=== PATIENT | male | born 1935 | race Hispanic/Latino ===

== ENCOUNTER 2018-01-12 06:18 | Day surgery (SDC) | payer OTHER ==
[2018-01-08 11:06] VITALS: BP 159/77
[2018-01-08 11:13] LABS: APPEARANCE,URINE Clear (CLEAR); BILIRUBIN,URINE Negative (NEGATIVE); COLOR,URINE Yellow (YELLOW); GLUCOSE, URINE (UA) Negative (NEGATIVE); KETONES,URINE Negative (NEGATIVE); LEUKOCYTE ESTERASE ,URINE Trace (NEGATIVE); NITRATE,URINE Negative (NEGATIVE); OCCULT BLOOD,URINE Negative (NEGATIVE); PH,URINE 7.5 (5.0-8.0); PROTEIN,URINE Negative (NEGATIVE)
[2018-01-08 11:19] LABS: BASOPHILS % (AUTO) 0.7 % (0.0-5.0); EOSINOPHILS % (AUTO) 2.7 % (0.0-8.0); HEMATOCRIT 39.7 % (42-54); LYMPHOCYTES % (AUTO) 22.6 % (21.0-51.0); MEAN CORPUSCULAR HEMOGLOBIN 27.3 pg (27.0-33.0); MEAN CORPUSCULAR HGB CONC 33.6 g/dL (32.0-36.0); MEAN CORPUSCULAR VOLUME 81.2 fL (79-99); MONOCYTES % (AUTO) 6.6 % (3.0-13.0); NEUTROPHILS % (AUTO) 67.4 % (40.0-77.0); PLATELET COUNT (AUTO) 216 K/uL (130-400); RED BLOOD CELL COUNT(AUTO) 4.89 MIL/uL (4.50-6.20); RED CELL DISTRIBUTION WIDTH 14.5 % (11.0-15.5); WHITE BLOOD COUNT (AUTO) 8.8 K/uL (4.8-10.8)
[2018-01-08 11:39] LABS: CREATININE 0.8 mg/dL (0.5-1.5); POTASSIUM 4.2 mmol/L (3.5-5.1)
[2018-01-08 11:41] LABS: BACTERIA,URINE Rare /HPF (None Seen); SQUAMOUS EPITHELIAL CELL,UR Rare /HPF (0-2); WBC,URINE 0-1 /HPF (0-1)
[2018-01-12] VITALS (22 sets, daily range): BP systolic 89–144; BP diastolic 48–73
[~2018-01-12] VITALS: Ht 175.3 cm; Wt 86.5 kg
[~2018-01-12 06:18] MED LIST: AMLO5TAB2 PO; ATOR10TA69 PO; CEFAZOLIN SODIUM 1 GM VIAL IVP SCH; LOSA100T29 PO; TAMS-1 PO
[2018-01-12] MEDS ORDERED: LACTATED RINGERS 1000ML 1,000 ML IV ONE ×2 (06:46→11:40)
[2018-01-12] MEDS ORDERED: FENTANYL CITRATE PF 50 MCG/1 ML 2ML VIAL ONE ×2 (07:12→09:14)
[2018-01-12] MEDS ORDERED: PROPOFOL 10 MG/ML 20ML VIAL IV ONE (07:12)
[2018-01-12] MEDS ORDERED: ROPIVACAINE 0.5% 5MG/ML 30ML IJ ONE ×2 (07:15→08:53)
[2018-01-12] MEDS ORDERED: ROCURONIUM BROMIDE 10MG/1ML 5ML VL ONE ×2 (07:16→08:53)
[2018-01-12] MEDS ORDERED: ONDANSETRON HCL MDV 20ML 2 MG/ML VIAL ONE ×2 (07:17→08:53)
[2018-01-12] MEDS ORDERED: GLYCOPYRROLATE 0.2 MG/ML 5 ML VIAL ONE (07:17)
[2018-01-12] MEDS ORDERED: LIDOCAINE PF 2% 5ML ABBOJECT ONE (08:53)
[2018-01-12] MEDS ORDERED: NEOSTIGMINE 5MG/5ML SYR IV ONE ×2 (08:53)
[2018-01-12] MEDS ORDERED: EPHEDRINE SULFATE 50 MG/ML AMPULE ONE (08:54)
== END 2018-01-12 14:00 | disposition home or self-care (01) ==
LOC: DAH 06:18
PROVIDERS: ATTEND Surgery
DX: K40.90 Unilateral inguinal hernia, without obstruction or gangrene, not specified as recurrent (principal); I10 Essential (primary) hypertension; E78.5 Hyperlipidemia, unspecified; E66.3 Overweight; E55.9 Vitamin D deficiency, unspecified; Z98.890 Other specified postprocedural states; Z79.899 Other long term (current) drug therapy
CPT/HCPCS: 36415; 49505; 80048; 81001; 85025; 93005; A4450; A4452; C1729; C1781; J2001; J2704; J2710 ×2; J2795 ×2; J3010 ×2; J3490 ×4; J7030; J7120 ×2

== ENCOUNTER 2018-05-19 08:04 | Emergency (ER) | payer OTHER ==
[~2018-05-19 08:04] MED LIST changes: -AMLO5TAB2 PO; +AMLO5TAB7 PO; -CEFAZOLIN SODIUM 1 GM VIAL IVP SCH; +LOSA100T20 PO; -LOSA100T29 PO
[2018-05-19 08:42] LABS: BASOPHILS % (AUTO) 0.6 % (0.0-5.0); EOSINOPHILS % (AUTO) 2.3 % (0.0-8.0); HEMATOCRIT 39.8 % (42-54); LYMPHOCYTES % (AUTO) 19.1 % (21.0-51.0); MEAN CORPUSCULAR HEMOGLOBIN 26.7 pg (27.0-33.0); MEAN CORPUSCULAR HGB CONC 32.2 g/dL (32.0-36.0); MEAN CORPUSCULAR VOLUME 82.8 fL (79-99); PLATELET COUNT (AUTO) 187 K/uL (130-400); RED BLOOD CELL COUNT(AUTO) 4.81 MIL/uL (4.50-6.20); RED CELL DISTRIBUTION WIDTH 15.3 % (11.0-15.5); WHITE BLOOD COUNT (AUTO) 7.5 K/uL (4.8-10.8)
[2018-05-19 08:51] LABS: CREATININE 0.9 mg/dL (0.5-1.5); POTASSIUM 3.6 mmol/L (3.5-5.1)
[2018-05-19 08:57] LABS: ALBUMIN 3.6 g/dL (3.5-5.0); BILIRUBIN,TOTAL 0.6 mg/dL (0.2-1.0); TOTAL PROTEIN, SERUM 7.3 g/dL (6.0-8.3)
[2018-05-19 09:22] LABS: APPEARANCE,URINE Cloudy (CLEAR); BILIRUBIN,URINE Negative (NEGATIVE); COLOR,URINE Yellow (YELLOW); GLUCOSE, URINE (UA) Negative (NEGATIVE); KETONES,URINE Negative (NEGATIVE); LEUKOCYTE ESTERASE ,URINE Trace (NEGATIVE); NITRATE,URINE Negative (NEGATIVE); OCCULT BLOOD,URINE Negative (NEGATIVE); PH,URINE 6.5 (5.0-8.0); PROTEIN,URINE Negative (NEGATIVE)
[2018-05-19 09:36] LABS: AMORPHOUS SEDIMENT,UR Many /LPF (None Seen); BACTERIA,URINE Few /HPF (None Seen); SQUAMOUS EPITHELIAL CELL,UR Rare /HPF (0-2); WBC,URINE None Seen /HPF (0-1)
== END 2018-05-19 10:38 | disposition home or self-care (01) ==
LOC: EDH 08:04
DX: I10 Essential (primary) hypertension (principal); R42 Dizziness and giddiness; Z87.891 Personal history of nicotine dependence
CPT/HCPCS: 36415; 71045; 80053; 81001; 84484; 85025; 93005

== ENCOUNTER → 2019-02-15 | Outpatient (CLI) | payer OTHER ==
[~2019-02-15] MED LIST changes: -AMLO5TAB7 PO; +AMLO5TAB9 PO; -LOSA100T20 PO; +LOSA100T58 PO
== END | disposition home or self-care (01) ==
LOC: RAH 07:49
PROVIDERS: ATTEND Family Medicine
DX: K76.0 Fatty (change of) liver, not elsewhere classified (principal); K76.89 Other specified diseases of liver; K80.20 Calculus of gallbladder without cholecystitis without obstruction
CPT/HCPCS: 76700

== ENCOUNTER 2019-05-02 11:44 | Emergency (ER) | payer OTHER ==
[2019-05-02] MEDS ORDERED: TRAMADOL HCL 50 MG TABLET ONE (13:36)
[2019-05-02] MEDS ORDERED: ORPHENADRINE CITRATE 30 MG/ML ML ONE (15:43)
== END 2019-05-02 16:06 | disposition home or self-care (01) ==
LOC: EDH 11:44
DX: S30.0XXA Contusion of lower back and pelvis, initial encounter (principal); I10 Essential (primary) hypertension; E78.00 Pure hypercholesterolemia, unspecified; X58.XXXA Exposure to other specified factors, initial encounter; Y93.89 Activity, other specified; Y92.89 Other specified places as the place of occurrence of the external cause; Y99.8 Other external cause status
CPT/HCPCS: 72131; 96372; 99284; J2360

== ENCOUNTER 2022-08-22 14:35 | Emergency (ER) | payer MEDICARE, OTHER ==
[~2022-08-22] VITALS: Ht 175.3 cm; Wt 83.5 kg
[~2022-08-22 14:35] MED LIST changes: +ALBU8.5H8 IH; +AMLO-257 PO; -AMLO5TAB9 PO; +AZIT250T9 PO; +OSEL75 PO; +PRED20B PO
[2022-08-22 15:01] LABS: HEMATOCRIT 35.4 % (42-54); MEAN CORPUSCULAR HEMOGLOBIN 27.4 pg (27.0-33.0); MEAN CORPUSCULAR HGB CONC 32.5 g/dL (32.0-36.0); MEAN CORPUSCULAR VOLUME 84.3 fL (79-99); RED BLOOD CELL COUNT(AUTO) 4.2 MIL/uL (4.50-6.20); RED CELL DISTRIBUTION WIDTH 14.6 % (11.0-15.5); WHITE BLOOD COUNT (AUTO) 8.7 K/uL (4.8-10.8)
[2022-08-22 15:11] LABS: POTASSIUM 3.7 mmol/L (3.5-5.1)
[2022-08-22 15:18] LABS: ALBUMIN 3.6 g/dL (3.5-5.0)
[2022-08-22 20:46] VITALS: BP 134/69
[2022-08-22] MEDS ORDERED: SOLU-MEDROL 125MG VIAL IVP ONE (21:00)
[2022-08-22] MEDS ORDERED: AZIT250T PO (23:36)
== END 2022-08-22 23:48 | disposition home or self-care (01) ==
LOC: EDH 14:35
DX: J40 Bronchitis, not specified as acute or chronic (principal); E78.00 Pure hypercholesterolemia, unspecified; I10 Essential (primary) hypertension; Z79.52 Long term (current) use of systemic steroids; Z20.822 Contact with and (suspected) exposure to COVID-19; Z79.899 Other long term (current) drug therapy
CPT/HCPCS: 99285; 96374; 71045; 87635; 84484 ×2; 80053; 85027; 87804 ×2; 36415; 93005 ×2; C9803; J2930

== ENCOUNTER → 2022-11-06 | Outpatient (CLI) | payer MEDICARE ==
[~2022-11-06] MED LIST changes: +AZIT250T PO
== END | disposition home or self-care (01) ==
LOC: RAH 14:08
PROVIDERS: ATTEND Family Medicine
DX: R91.8 Other nonspecific abnormal finding of lung field (principal); J42 Unspecified chronic bronchitis; K80.20 Calculus of gallbladder without cholecystitis without obstruction
CPT/HCPCS: 71250

== ENCOUNTER 2024-10-07 20:35 | Emergency (ER) | payer MEDICARE ==
[~2024-10-07] VITALS: Ht 175.3 cm; Wt 83.5 kg
[~2024-10-07 20:35] MED LIST changes: -LOSA100T58 PO; +LOSA100T59 PO
--- NOTE | 2024-10-07 20:54 | ERN ---
ED Note History of Present Illness Stated Complaint: DIZZINESS Chief Complaint: Dizzy/Light Headed Time Seen by MD: 20:44 Dictation: This is a 89-year-old male who presented to the emergency room with complaints of feeling very dizzy and lightheaded. Apparently he has been diagnosed with Parkinson's disease and his medications have been increased recently and he began experiencing some nausea nonspecific headache but the dizziness was profound today and hence he came in for evaluation No history of any diarrhea nausea vomitings no fever chills or rigors. Temperature 98.5 pulse 86 respirations 17 blood pressure 192/82 with a pulse oximetry of 97% on room air His chronic medical problems include hypertension, hypercholesterolemia, Parkinson's disease, history of left lung surgery as a child Allergies: Coded Allergies: No Known Drug Allergies (Unverified Allergy, Unknown, 01/08/18) Home Meds Active Scripts Cyclobenzaprine HCl (Cyclobenzaprine HCl) 5 Mg Tablet, 1 TAB PO BID PRN for muscle spasms for 7 Days, #14 TAB 0 Refills Prov:VAIBHAV ROMERO MD 10/07/24 Prednisone (Prednisone) 20 Mg Tablet, 1 TAB PO AD for 6 Days, #14 TAB 0 Refills TAKE 1 TAB BY MOUTH THREE TIMES PER DAY X3 DAYS, THEN TAKE 1 TAB BY MOUTH TWICE A DAY X2 DAYS, THEN TAKE 1 TAB BY MOUTH ONCE A DAY X1 DAY. Prov:VAIBHAV ROMERO MD 10/07/24 Azithromycin (Zithromax) 250 Mg Tablet, 250 MG PO DAILY for 5 Days, #6 TAB Prov:FLAKO JEFFRIES MD 08/22/22 Albuterol Sulfate (Proair Hfa) 8.5 Gm Hfa.aer.ad, 8.5 GM IH Q6H for 30 Days, #2 INHALER 0 Refills Prov:ZA JONES MD 08/23/19 Azithromycin (Azithromycin) 250 Mg Tablet, 250 MG PO DAILY for 1 Day, #1 TAB 0 Refills Prov:ZA JONES MD 08/23/19 Prednisone (Deltasone/Orasone [Bulk]) 20 Mg Tab, 40 MG PO DAILY for 1 Day, #1 TAB 0 Refills Prov:ZA JONES MD 08/23/19 Oseltamivir Phosphate (Tamiflu) 75 Mg Cap, 75 MG PO DAILY for 1 Day, #1 CAP 0 Refills Prov:ZA JONES MD 08/23/19 Reported Medications Atorvastatin Calcium (Atorvastatin Calcium) 10 Mg Tablet, 10 MG PO HS, TAB 01/08/18 Losartan Potassium (Losartan Potassium) 100 Mg Tablet, 100 MG PO DAILY, TAB 01/08/18 Tamsulosin HCl (Flomax) 0.4 Mg Cap.er.24h, 0.4 MG PO HS, CAPSULE. 01/08/18 Amlodipine Besylate (Amlodipine Besylate) 5 Mg Tablet, 5 MG PO HS, TAB 01/08/18 Past Medical History Past Medical History: Hypertension, Other Additional Past Medical Hx: PARKINSONS Surgical History: Other Surgical History Other: LEFT LUNG SX YOUNG ADULT Family History: Negative Social History: Negative RN Note Reviewed/Agreed w/PFSH: Yes Review of System Dictation Complaints of feeling dizzy and lightheaded and some nausea Constitutional: Negative for fever,chills, and weight loss Eyes: Negative for injury, pain,redness, and discharge ENT: Negative for injury,pain or swelling Cardiovascular: Negative for chest pain, palpitations, and edema Respiratory: Negative for shortness of breath, cough, and wheezing, Abdomen/GI: Negative for abdominal pain, nausea, vomiting, diarrhea, and constipation Back: Negative for injury and pain : Negative for injury, bleeding and discharge MS/Extremity: Negative for injury and deformity Skin: Negative for rash, and discoloration Neuro: Negative for headache, weakness, numbness, tingling, and seizure Psych: Negative for suicide ideation, homicidal ideation, and hallucinations Initial Vital Sign VS Vital Signs Date Time Temp Pulse Resp B/P (MAP) Pulse Ox O2 Delivery O2 Flow Rate FiO2 10/07/24 20:37 98.4 86 17 192/82 97 Room Air 0 10/07/24 22:24 21 Physical Exam Dictation General: awake, alert, NAD very pleasant elderly male Head/Face: Normocephalic, atraumatic Eyes: PERRL, EOMI, vision at baseline ENT: oral cavity clear, TMs clear, no signs of infection Neck: Trachea midline, supple, no nuchal rigidity Cardiovascular: RRR, normal S1/S2, No MRGs, no JVD Respiratory: CTAB, no respiratory distress, No rales or wheezes Abdomen: Soft, non-tender, non-distended, normal bowel sounds, no guarding or rebound. Skin: Warm, dry, normal turgor, no rash MS/Extremity: Pulses equal, no cyanosis, neurovascular intact, FROM Neuro: COAx4, GCS 15, strength 5/5, CN 2-12 intact, normal cerebellar exam, normal gait, intentional tremors noted Psych: Normal behavior, mood, and affect normal Extremities-trace edema without any palpable cords, Homans sign is negative Results (Laboratory/Radiology) Laboratory/Radiology Laboratory Tests Test 10/07/24 21:18 10/07/24 21:40 White Blood Count 6.5 K/uL (4.8-10.8) Red Blood Count 4.41 MIL/uL (4.50-6.20) L Hemoglobin 11.9 g/dL (14.0-18.0) L Hematocrit 37.3 % (42-54) L Mean Corpuscular Volume 84.6 fL (79-99) Mean Corpuscular Hemoglobin 27.0 pg (27.0-33.0) Mean Corpuscular Hemoglobin Concent 31.9 g/dL (32.0-36.0) L Red Cell Distribution Width 14.3 % (11.0-15.5) Platelet Count 186 K/uL (130-400) Mean Platelet Volume 10.7 fL (7.5-10.5) H Immature Granulocyte % (Auto) 0.3 % (0-1) Neutrophils (%) (Auto) 64.7 % (40.0-77.0) Lymphocytes (%) (Auto) 21.1 % (21.0-51.0) Monocytes (%) (Auto) 8.7 % (3.0-13.0) Eosinophils (%) (Auto) 4.4 % (0.0-8.0) Basophils (%) (Auto) 0.8 % (0.0-5.0) Neutrophils # (Auto) 4.2 K/uL (1.8-7.7) Lymphocytes # (Auto) 1.4 K/uL (1.0-4.8) Monocytes # (Auto) 0.6 K/uL (0.1-1.0) Eosinophils # (Auto) 0.29 K/uL (0.00-0.70) Basophils # (Auto) 0.05 K/uL (0.00-0.20) Absolute Immature Granulocyte (auto 0.02 K/uL (0-1) Nucleated Red Blood Cells 0.0 % (0.0-0.19) Sodium Level 141 mmol/L (136-145) Potassium Level 4.2 mmol/L (3.5-5.1) Chloride Level 104 mmol/L (101-111) Carbon Dioxide Level 31 mmol/L (21-32) Blood Urea Nitrogen 12 mg/dL (7-18) Creatinine 0.8 mg/dL (0.5-1.3) Glomerular Filtration Rate Calc 86 mL/min (>90) Random Glucose 136 mg/dL (70-105) H Total Calcium 8.7 mg/dL (8.5-10.1) Total Creatine Kinase 95 U/L (21-232) # Troponin I High Sensitivity 8.0 ng/L (4-75) B-Type Natriuretic Peptide 73 pg/mL (0-100) Urine Color LIGHT-YELLOW (YELLOW) Urine Appearance CLOUDY (CLEAR) H Urine pH 7.5 (5.0-8.0) Urine Specific [place] 1.017 (1.001-1.031) Urine Protein NEGATIVE mg/dL (NEGATIVE) Urine Glucose (UA) NEGATIVE mg/dL (NEGATIVE) Urine Ketones NEGATIVE mg/dL (NEGATIVE) Urine Occult Blood NEGATIVE (NEGATIVE) Urine Nitrate NEGATIVE (NEGATIVE) Urine Bilirubin NEGATIVE mg/dL (NEGATIVE) Urine Urobilinogen 4.0 mg/dL (0.2-1.0) H Urine Leukocyte Esterase NEGATIVE [place]/uL Urine RBC 2-5 /HPF (0-1) H Urine WBC 6-10 /HPF (0-1) H Urine Squamous Epithelial Cells RARE /HPF (0-2) Urine Amorphous Crystals (Auto) Many /LPF (None Seen) H Urine Bacteria None /HPF (None Seen) Labs Reviewed?: Yes EKG Comment: Twelve lead EKG done on 10/07/2024 at 8:34 p.m. showed a heart rate of 81, GA interval 92, QRS 88, QT/QTC 375/435 Impression normal sinus rhythm with some nonspecific STT wave changes in the anterolateral leads. Interpreted by Dr. Romero ED Course ED Course Orders Procedure Category Date Status Time 12 Lead Ekg Tracing- EKG 10/07/24 Logged Technical 20:42 Cardiac Panel LAB 10/07/24 Complete 20:49 Cbc With Differential LAB 10/07/24 Complete 20:49 Basic Metabolic Panel LAB 10/07/24 Complete 20:49 B-Type Natriuretic LAB 10/07/24 Complete Peptide 20:49 Urinalysis Profile LAB 10/07/24 Complete 20:49 Chest 1vw RAD 10/07/24 Taken 21:19 Culture Urine LATANYA 10/07/24 In Process 21:59 0.9%Nacl 1000ml (Ns PHA 10/07/24 Complete 1000ml) 22:30 Methylprednisolone PHA 10/07/24 Complete Succ 40mg (Solu-Medro 23:30 Cyclobenzaprine Hcl PHA 10/07/24 Complete (Cyclobenzaprine Hcl 23:30 Ketorolac PHA 10/07/24 Complete Tromethamine 15mg/Ml 23:30 Current Medications Medications (Trade) Dose Ordered Sig/Aftab Route PRN Reason Start Time Stop Time Status Last Admin Dose Admin Cyclobenzaprine HCl (Cyclobenzaprine HCl) 5 mg ONCE ONCE PO 10/07/24 23:30 10/07/24 23:31 DC 10/07/24 23:14 Ketorolac Tromethamine (toRADol) 15 mg ONCE ONCE IV 10/07/24 23:30 10/07/24 23:31 DC 10/07/24 23:15 Methylprednisolone Sodium Succinate (Solu-medROL 40MG) 40 mg ONCE ONCE IVP 10/07/24 23:30 10/07/24 23:31 DC 10/07/24 23:15 Sodium Chloride 1,000 ml @ 0 mls/hr ONCE ONCE IV 10/07/24 22:30 10/07/24 22:31 DC 10/07/24 23:14 Vital Signs Date Time Temp Pulse Resp B/P (MAP) Pulse Ox O2 Delivery O2 Flow Rate FiO2 10/07/24 22:24 97.9 76 19 141/64 99 Room Air* 0 21 10/07/24 20:37 98.4 86 17 192/82 97 Room Air 0 We will perform diagnostic labs, advanced imaging and administer medications according to the patient's complaint. Once the results are available, will review and personally interpreted the labs to rule out any acute life- threatening emergency the trach require immediate intervention and treatment. I will then re-evaluate the patient after treatment and diagnostic exams have re turn to determine whether the patient requires any further testing, can safely be discharged home or need further admission to hospital for additional treatment and evaluation. Labs reviewed CBC showed a hemoglobin of 11.9 white count 6.5 BNP 7 is relatively normal BUN and creatinine are 12 and 0.8. Brain natriuretic peptide is 73 urinalysis is unremarkable for any acute UTI. Chest x-ray negative for any acute infiltrate right hemidiaphragm is slightly elevated. Had discussion with the patient and spouse at bedside and explained to them that perhaps patient may be experiencing some anticholinergic side effects as well as early autonomic dysfunction associated with Parkinson's disease. Medical Decision Making MDM MDM: Differential diagnosis: Anticholinergic side effects, early multisystem dystrophy, cervical spondylosis, dehydration, autonomic dysreflexia Rationale: Tests considered and ordered secondary to shared decision making include: Previous outside records reviewed: Old ER visits. Risk of complication and/or morbidity or mortality of patient management: None Medications-Per medication reconciliation Need for hospitalization: Patient does not meet criteria for hospitalization. Need for emergency major/minor surgery: No There are no social concerns with this patient. Prescription drug management Prescriptions will include symptomatic care Patient's prior external medical records from other ER visits were reviewed by me as indicated. Prior testing and results from previous visits were reviewed. Prior tests were taken into account with medical decision making and resource utilization, independent historian/historians were used to obtain complete medical history. I independently interpreted the test that were performed, results were reviewed by me and considered findings on radiology if ordered. Medical management and examination interpretation discussions were had by me with other qualified healthcare professionals as indicated for the patient's care. Problem List Problem List: (1) Dizziness (2) Lightheaded (3) Parkinsons disease (4) Neck pain DX & DISP Disposition: Discharge Departure Impression: Primary Impression: Dizziness Additional Impressions: Lightheaded, Parkinsons disease, Neck pain Condition: Stable Scripts Cyclobenzaprine HCl (Cyclobenzaprine HCl) 5 Mg Tablet 1 TAB PO BID PRN for muscle spasms for 7 Days, #14 TAB 0 Refills Prov: VAIBHAV ROMERO MD 10/07/24 Prednisone (Prednisone) 20 Mg Tablet 1 TAB PO AD for 6 Days, #14 TAB 0 Refills TAKE 1 TAB BY MOUTH THREE TIMES PER DAY X3 DAYS, THEN TAKE 1 TAB BY MOUTH TWICE A DAY X2 DAYS, THEN TAKE 1 TAB BY MOUTH ONCE A DAY X1 DAY. Prov: VAIBHAV ROMERO MD 10/07/24 Additional Instructions: Patient and the caregiver have been informed of all the diagnostic tests and the imaging conducted during the today's visit to the emergency room and has verbalized understanding of the results I have personally reviewed and interpreted all diagnostic exams performed here in the ER today as well as the vital signs documented by the nursing staff. The patient is now being discharged to home and should follow up with the primary care physician or the specialist as directed by the ER staff. Follow-up with primary care provider in 1 to 2 days. Take medications as directed here in the emergency room. Okay to continue home medications unless otherwise discussed during your visit in the emergency room today. Return to your nearest emergency room if symptoms worsen or if there is no improvement. Call 911 if you need immediate assistance. Take Tylenol or Motrin [id number] as needed and if no contraindications are present. Increase oral hydration. A wound culture or urine culture was ordered here in the emergency room department please follow-up with primary care provider and advise them to get repeat ports from our facility. If you had any Jagdeep wrap/splints that were applied here, please do not remove them until you see your primary care or specialty. Referrals: TUTU HINES MD (PCP) VAIBHAV ROMERO MD Oct 07, 2024 20:54
[2024-10-07 21:32] LABS: BASOPHILS # (AUTO) 0.05 K/uL (0.00-0.20); BASOPHILS % (AUTO) 0.8 % (0.0-5.0); EOSINOPHILS # (AUTO) 0.29 K/uL (0.00-0.70); EOSINOPHILS % (AUTO) 4.4 % (0.0-8.0); HEMATOCRIT 37.3 % (42-54); IMMATURE GRANULOCYTE ABSOLUTE 0.02 K/uL (0-1); LYMPHOCYTES # (AUTO) 1.4 K/uL (1.0-4.8); LYMPHOCYTES % (AUTO) 21.1 % (21.0-51.0); MEAN CORPUSCULAR HGB CONC 31.9 g/dL (32.0-36.0); MEAN CORPUSCULAR VOLUME 84.6 fL (79-99); MONOCYTES # (AUTO) 0.6 K/uL (0.1-1.0); MONOCYTES % (AUTO) 8.7 % (3.0-13.0); NEUTROPHILS # (AUTO) 4.2 K/uL (1.8-7.7); NEUTROPHILS % (AUTO) 64.7 % (40.0-77.0); PLATELET COUNT (AUTO) 186 K/uL (130-400); RED BLOOD CELL COUNT(AUTO) 4.41 MIL/uL (4.50-6.20); RED CELL DISTRIBUTION WIDTH 14.3 % (11.0-15.5); WHITE BLOOD COUNT (AUTO) 6.5 K/uL (4.8-10.8)
[2024-10-07 21:44] LABS: CREATININE 0.8 mg/dL (0.5-1.3); POTASSIUM 4.2 mmol/L (3.5-5.1)
[2024-10-07 21:48] LABS: APPEARANCE,URINE CLOUDY (CLEAR); BILIRUBIN,URINE NEGATIVE (NEGATIVE); COLOR,URINE LIGHT-YELLOW (YELLOW); GLUCOSE, URINE (UA) NEGATIVE (NEGATIVE); KETONES,URINE NEGATIVE (NEGATIVE); LEUKOCYTE ESTERASE ,URINE NEGATIVE Leu/uL (NEGATIVE); NITRATE,URINE NEGATIVE (NEGATIVE); OCCULT BLOOD,URINE NEGATIVE (NEGATIVE); PH,URINE 7.5 (5.0-8.0); PROTEIN,URINE NEGATIVE (NEGATIVE)
[2024-10-07 21:49] LABS: ADD UA MICROSCOPIC YES
[2024-10-07 21:54] LABS: B-TYPE NATRIURETIC PEPTIDE 73 pg/mL (0-100)
[2024-10-07 21:55] LABS: SQUAMOUS EPITHELIAL CELL,UR RARE /HPF (0-2)
[2024-10-07] MEDS ORDERED: CYCL5TAB3 PO (23:13)
[2024-10-07] MEDS ORDERED: PRED20TA3 PO (23:13)
[2024-10-07] MEDS: 0.9%NACL 1000ML 1,000 ML IV ONE (23:14)
[2024-10-07] MEDS: CYCLOBENZAPRINE HCL 10 MG TABLET PO ONE (23:14)
[2024-10-07] MEDS: ketOROlac 15MG/ML VIAL (15MG/ML) IV ONE (23:15)
[2024-10-07] MEDS: Solu-medROL 40MG VIAL IVP ONE (23:15)
[2024-10-08 00:02] VITALS: BP 149/62; PULSE 66; RESP 17; TEMP 97.9; O2SAT 99
--- NOTE | 2024-10-08 05:57 | EKG ---
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
--- NOTE | 2024-10-08 08:48 | HMCIMG ---
Exam Type: CHEST 1VW Clinical Information: dizzy lightheaded Comparison: None Findings: The lungs are clear of infiltrates. The heart is normal in size. The bony and soft tissue structures of the chest are unremarkable. Impression: Clear lungs.
== END 2024-10-08 00:15 | disposition home or self-care (01) ==
LOC: EDH 20:35
DX: R42 Dizziness and giddiness (principal); G20.A1 Parkinson's disease without dyskinesia, without mention of fluctuations; M54.2 Cervicalgia; I10 Essential (primary) hypertension; Z79.52 Long term (current) use of systemic steroids; Z79.899 Other long term (current) drug therapy
CPT/HCPCS: 99285; 96374; 71045; 96361; 96375; 82550; 84484; 80048; 83880; 85025; 87086; 81001; 36415; 93005; J1885; J2919; J7030

== ENCOUNTER 2024-12-28 19:40 | Emergency (ER) | payer MEDICARE ==
[~2024-12-28] VITALS: Ht 175.3 cm; Wt 84.8 kg
[~2024-12-28 19:40] MED LIST changes: +CYCL5TAB3 PO; +PRED20TA3 PO; -TAMS-1 PO; +TAMS-55 PO
--- NOTE | 2024-12-28 20:34 | EKG ---
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
--- NOTE | 2024-12-28 21:39 | ERN ---
General Chief Complaint: Hypertension Stated Complaint: C/O HIGH B/P WITH HEADACHE Time Seen by MD: 19:47 Source: patient History of Present Illness Initial Comments Patient is a 89-year-old male who comes in with a headache and blood pressure of systolic 156 measured at home.. He also has some left shoulder pain. He has no other systemic complaints no fevers no chills no upper respiratory tract infection no GI problems urinating defecating well. Blood pressure measured here in the ED has a systolic of 144. Timing/Duration: 4-6 hours Severity: mild Associated Symptoms: headaches Allergies: Coded Allergies: No Known Drug Allergies (Unverified Allergy, Unknown, 01/08/18) Home Meds Active Scripts Cyclobenzaprine HCl (Cyclobenzaprine HCl) 5 Mg Tablet, 1 TAB PO BID PRN for muscle spasms for 7 Days, #14 TAB 0 Refills Prov:VAIBHAV HENNING MD 10/07/24 Prednisone (Prednisone) 20 Mg Tablet, 1 TAB PO AD for 6 Days, #14 TAB 0 Refills TAKE 1 TAB BY MOUTH THREE TIMES PER DAY X3 DAYS, THEN TAKE 1 TAB BY MOUTH TWICE A DAY X2 DAYS, THEN TAKE 1 TAB BY MOUTH ONCE A DAY X1 DAY. Prov:VAIBHAV HENNING MD 10/07/24 Azithromycin (Zithromax) 250 Mg Tablet, 250 MG PO DAILY for 5 Days, #6 TAB Prov:FLAKO JEFFRIES MD 08/22/22 Albuterol Sulfate (Proair Hfa) 8.5 Gm Hfa.aer.ad, 8.5 GM IH Q6H for 30 Days, #2 INHALER 0 Refills Prov:ZA JONES MD 08/23/19 Azithromycin (Azithromycin) 250 Mg Tablet, 250 MG PO DAILY for 1 Day, #1 TAB 0 Refills Prov:ZA JONES MD 08/23/19 Prednisone (Deltasone/Orasone [Bulk]) 20 Mg Tab, 40 MG PO DAILY for 1 Day, #1 TAB 0 Refills Prov:ZA JONES MD 08/23/19 Oseltamivir Phosphate (Tamiflu) 75 Mg Cap, 75 MG PO DAILY for 1 Day, #1 CAP 0 Refills Prov:ZA JONES MD 08/23/19 Reported Medications Atorvastatin Calcium (Atorvastatin Calcium) 10 Mg Tablet, 10 MG PO HS, TAB 01/08/18 Losartan Potassium (Losartan Potassium) 100 Mg Tablet, 100 MG PO DAILY, TAB 01/08/18 Tamsulosin HCl (Flomax) 0.4 Mg Cap.er.24h, 0.4 MG PO HS, CAPSULE.DR 01/08/18 Amlodipine Besylate (Amlodipine Besylate) 5 Mg Tablet, 5 MG PO HS, TAB 01/08/18 Past Medical History Past Medical History: Hypertension, Other Medical History Other: HX OF PARKINSON'S Past Surgical History: Other Surgical History Other: LEFT LUNG SX YOUNG ADULT Family History Family History: Negative Social History Social History: Negative Constitutional: (-) chills, (-) diaphoresis, (-) fever, (-) malaise, (-) we akness, (-) other documentation EENTM: (-) eye pain, (-) blurred vision, (-) tearing, (-) double vision, (-) ear pain, (-) ear discharge, (-) nose pain, (-) nose congestion, (-) throat pain, (-) Throat swelling, (-) mouth pain, (-) tooth pain, (-) mouth swelling, (-) other documentation Respiratory: (-) cough, (-) orthopnea, (-) short of breath, (-) stridor, (-) wheezing, (-) other documentation Cardiovascular: (-) chest pain, (-) edema, (-) palpitations, (-) syncope, (-) dyspnea on exertion, (-) other documentation Musculoskeletal: (-) Neck pain, (-) back pain, (-) Flank Pain, (-) joint pain, (-) joint swelling, (-) muscle pain, (-) muscle stiffness, (-) gout, (-) other documentation Skin: (-) laceration, (-) contusion, (-) abrasion, (-) abscess, (-) rash, (-) change in color, (-) change in hair, (-) change in nails, (-) diaphoresis, (-) dryness, (-) other documentation Neuro: (+) headache Physical Exam General Appearance: (+) no apparent distress Orientation: (+) alert, (+) oriented x 3 Head/Face Trauma: No Eye: bilateral eye normal inspection, bilateral eye PERRL, bilateral eye EOMI Ear, Nose, Throat: (+) hearing grossly normal, (+) normal ENT inspection, (+) moist mucous membraine Neck: (+) normal inspection, (+) supple, (+) full range of motion Respiratory: (+) chest non-tender, (+) lungs clear, (+) well ventilated Heart: (+) regular, (+) no gallop Vascular: (+) no edema, (+) normal peripheral pulse Gastrointestinal: (+) soft, (+) non-tender, (+) no organomegaly, (+) bowel sound present Back: (+) normal inspection, (+) no CVA tenderness Extremities: (+) normal range of motion MDM Patient's constellation of symptoms maybe simple dehydration. There maybe other reasons for his headache such as his high blood pressure but right now his blood pressure is normal. He has no focal neurologic symptoms so I doubt if he has a stroke I do not think he needs a head CT scan my plan is to order electrolytes give him some fluid and re-evaluate him. I went back out to the lobby to talk to the patient and he said that he had some emesis and he feels great and he would like to go home his headache is gone. I advised him to drink plenty of fluids and watch out for symptoms of dehydration. ED Course Orders Procedure Category Date Status Time 12 Lead Ekg Tracing- EKG 12/28/24 Complete Technical 19:50 Vital Signs Date Time Temp Pulse Resp B/P (MAP) Pulse Ox O2 Delivery O2 Flow Rate FiO2 12/28/24 19:42 97.9 86 20 144/67 98 Room Air DX & DISP Disposition: Discharge Departure Impression: Primary Impression: Lightheaded Additional Impression: Neck pain Condition: Stable Additional Instructions: Please maintain hydration please come back if your symptoms return or get worse. Currently your blood pressure is is below 150 and you are safe to go home. Follow-up with your primary care physician regarding your blood pressure. Referrals: SELF,REFERRAL (PCP) VICTORIANO SALES MD December 28, 2024 21:39
[2024-12-28 22:06] VITALS: BP 136/66; PULSE 82; RESP 20; TEMP 97.6; O2SAT 98
== END 2024-12-28 22:10 | disposition home or self-care (01) ==
LOC: EDH 19:40
DX: R42 Dizziness and giddiness (principal); M54.2 Cervicalgia; I10 Essential (primary) hypertension; Z79.52 Long term (current) use of systemic steroids; Z79.899 Other long term (current) drug therapy
CPT/HCPCS: 93005; 99283

== ENCOUNTER 2025-03-09 20:48 | Emergency (ER) | payer MEDICARE ==
[~2025-03-09] VITALS: Ht 175.3 cm; Wt 82.1 kg
[2025-03-09 21:20] LABS: IMMATURE GRANULOCYTE ABSOLUTE 0.05 K/uL (0-1); NUCLEATED RED BLOOD CELLS 0.0 % (0.0-0.19); PLATELET COUNT (AUTO) 187 K/uL (130-400); RED BLOOD CELL COUNT(AUTO) 4.34 MIL/uL (4.50-6.20); RED CELL DISTRIBUTION WIDTH 14.9 % (11.0-15.5); WHITE BLOOD COUNT (AUTO) 8.6 K/uL (4.8-10.8)
[2025-03-09] MEDS: 0.9%NACL 1000ML 1,000 ML IV ONE (21:27)
[2025-03-09 21:28] LABS: CREATININE 0.8 mg/dL (0.5-1.3); GLOMERULAR FILTR. RATE CALC 86.0 mL/min (>90); GLUCOSE,RANDOM 111.0 mg/dL (70-105); SODIUM SERUM 142.0 mmol/L (136-145); UREA NITROGEN, BLOOD 20.0 mg/dL (7-18)
[2025-03-09 21:33] LABS: CREATINE KINASE, TOTAL 85.0 U/L (21-232)
[2025-03-09 21:38] LABS: APPEARANCE,URINE CLEAR (CLEAR); GLUCOSE, URINE (UA) NEGATIVE (NEGATIVE); LEUKOCYTE ESTERASE ,URINE NEGATIVE Leu/uL (NEGATIVE); NITRATE,URINE NEGATIVE (NEGATIVE); OCCULT BLOOD,URINE NEGATIVE (NEGATIVE)
[2025-03-09 21:39] LABS: ADD UA MICROSCOPIC YES
[2025-03-09 21:40] LABS: SQUAMOUS EPITHELIAL CELL,UR RARE /HPF (0-2)
--- NOTE | 2025-03-09 22:00 | HMCIMG ---
EXAM: CR Chest, 1 View. CLINICAL HISTORY: dizzy COMPARISON: Radiograph dated October 07, 2024 FINDINGS: LUNGS: There is subtle airspace disease at the lung bases that may reflect an infectious/inflammatory process. PLEURAL SPACES: No pleural effusion or pneumothorax. MEDIASTINUM: Unchanged elevation of the right hemidiaphragm. The cardiomediastinal silhouette is within normal limits. BONES: No acute osseous abnormality. IMPRESSION: 1. Subtle bibasilar airspace disease, possibly representing infection or inflammation. /[place]
--- NOTE | 2025-03-09 22:03 | ERN ---
ED Note History of Present Illness Stated Complaint: C/O WEAKNESS, B/P PROBLEMS Chief Complaint: Weakness Time Seen by MD: 20:51 Time Seen by Midlevel: 20:51 Dictation: The Patient is an 89-year-old male with a history of hypertension, Parkinson's who presents to the emergency department with complaints of dizziness and fluctuation in blood pressure. Patient reports he has been having these problems for over two months and has been follow up with the his primary doctor and working on the blood pressure medications. Patient denies any nausea or vomiting, denies any falls, denies any use of blood thinners or bloody stools. Allergies: Coded Allergies: No Known Drug Allergies (Unverified Allergy, Unknown, 01/08/18) Home Meds Active Scripts Cyclobenzaprine HCl (Cyclobenzaprine HCl) 5 Mg Tablet, 1 TAB PO BID PRN for muscle spasms for 7 Days, #14 TAB 0 Refills Prov:VAIBHAV HENNING MD 10/07/24 Prednisone (Prednisone) 20 Mg Tablet, 1 TAB PO AD for 6 Days, #14 TAB 0 Refills TAKE 1 TAB BY MOUTH THREE TIMES PER DAY X3 DAYS, THEN TAKE 1 TAB BY MOUTH TWICE A DAY X2 DAYS, THEN TAKE 1 TAB BY MOUTH ONCE A DAY X1 DAY. Prov:VAIBHAV HENNING MD 10/07/24 Azithromycin (Zithromax) 250 Mg Tablet, 250 MG PO DAILY for 5 Days, #6 TAB Prov:FLAKO JEFFRIES MD 08/22/22 Albuterol Sulfate (Proair Hfa) 8.5 Gm Hfa.aer.ad, 8.5 GM IH Q6H for 30 Days, #2 INHALER 0 Refills Prov:ZA JONES MD 08/23/19 Azithromycin (Azithromycin) 250 Mg Tablet, 250 MG PO DAILY for 1 Day, #1 TAB 0 Refills Prov:ZA JONES MD 08/23/19 Prednisone (Deltasone/Orasone [Bulk]) 20 Mg Tab, 40 MG PO DAILY for 1 Day, #1 TAB 0 Refills Prov:ZA JONES MD 08/23/19 Oseltamivir Phosphate (Tamiflu) 75 Mg Cap, 75 MG PO DAILY for 1 Day, #1 CAP 0 Refills Prov:ZA JONES MD 08/23/19 Reported Medications Atorvastatin Calcium (Atorvastatin Calcium) 10 Mg Tablet, 10 MG PO HS, TAB 01/08/18 Losartan Potassium (Losartan Potassium) 100 Mg Tablet, 100 MG PO DAILY, TAB 01/08/18 Tamsulosin HCl (Flomax) 0.4 Mg Cap.er.24h, 0.4 MG PO HS, CAPSULE. 01/08/18 Amlodipine Besylate (Amlodipine Besylate) 5 Mg Tablet, 5 MG PO HS, TAB 01/08/18 Past Medical History Past Medical History: Hypertension, Other Additional Past Medical Hx: HX OF PARKINSON'S Surgical History: Other Surgical History Other: HERNIA REPAIR; Family History: Negative Social History: Negative RN Note Reviewed/Agreed w/PFSH: Yes Review of System Dictation Constitutional: Negative for fever,chills, and weight loss Eyes: Negative for injury, pain,redness, and discharge ENT: Negative for injury,pain or swelling Cardiovascular: Negative for chest pain, palpitations, and edema Respiratory: Negative for shortness of breath, cough, and wheezing, Abdomen/GI: Negative for abdominal pain, nausea, vomiting, diarrhea, and constipation Back: Negative for injury and pain : Negative for injury, bleeding and discharge MS/Extremity: Negative for injury and deformity Skin: Negative for rash, and discoloration Neuro: Negative for headache, weakness, numbness, tingling, and seizure positive for dizziness Psych: Negative for suicide ideation, homicidal ideation, and hallucinations Initial Vital Sign VS Vital Signs Date Time Temp Pulse Resp B/P (MAP) Pulse Ox O2 Delivery O2 Flow Rate FiO2 03/09/25 20:49 98.6 85 20 158/66 96 Room Air 03/09/25 22:00 0 21 Physical Exam Dictation Vital Signs reviewed General Appearance: Alert, oriented x 3, no acute distress, well developed, nourished. Head and Face: non-traumatic. Eyes: PERRL, pink conjunctivas, eyelid no trauma, anterior chamber with arcus senilis. Ears: Pinnas intact and no signs of trauma or erythema ear canals clear and no discharge TM no erythema Nose: No discharge, no bleeding. Oropharynx: Mouth normal, tongue pink. pharynx clear,no erythema, tonsils no exudates, no abscesses noted, mucous membrane moist Neck: Supple, non-tender, no thyromegaly, no masses, no JVD, no bruits Breast:Deferred Chest:No tenderness, no crepitus, no paradoxical movement, no retractions Lungs:Clear, well-ventilated, symmetric, no rales, no wheezing, no rhonchi, no stridor, good breath sounds bilaterally Heart: Regular rate, regular rhythm, no murmur, no gallops Vascular: no peripheral edema, Abdomen: Soft, positive bowel sounds, nondistended, no guarding, nontender, no rebound, no masses no hepatomegaly, no splenomegaly, no Pinzon's sign, no hernias. Rectal: Deferred Genital: Deferred Neurological: Normal speech, motor function intact, sensory function intact , upper extremities equal in strength, lower extremities equal in strength Musculoskeletal: Neck nontender, full range of motion, back nontender, full range of motion, Extremities: nontender, full range of motion Skin: Color pink, dry, no turgor, no rash, no lacerations, no abrasions, no contusions. Lymphatic: Deferred Results (Laboratory/Radiology) Laboratory/Radiology Laboratory Tests Test 03/09/25 21:14 03/09/25 21:32 White Blood Count 8.6 K/uL (4.8-10.8) Red Blood Count 4.34 MIL/uL (4.50-6.20) L Hemoglobin 12.1 g/dL (14.0-18.0) L Hematocrit 36.8 % (42-54) L Mean Corpuscular Volume 84.8 fL (79-99) Mean Corpuscular Hemoglobin 27.9 pg (27.0-33.0) Mean Corpuscular Hemoglobin Concent 32.9 g/dL (32.0-36.0) Red Cell Distribution Width 14.9 % (11.0-15.5) Platelet Count 187 K/uL (130-400) Mean Platelet Volume 9.9 fL (7.5-10.5) Immature Granulocyte % (Auto) 0.6 % (0-1) Neutrophils (%) (Auto) 72.1 % (40.0-77.0) Lymphocytes (%) (Auto) 17.3 % (21.0-51.0) L Monocytes (%) (Auto) 8.4 % (3.0-13.0) Eosinophils (%) (Auto) 1.1 % (0.0-8.0) Basophils (%) (Auto) 0.5 % (0.0-5.0) Neutrophils # (Auto) 6.2 K/uL (1.8-7.7) Lymphocytes # (Auto) 1.5 K/uL (1.0-4.8) Monocytes # (Auto) 0.7 K/uL (0.1-1.0) Eosinophils # (Auto) 0.09 K/uL (0.00-0.70) Basophils # (Auto) 0.04 K/uL (0.00-0.20) Absolute Immature Granulocyte (auto 0.05 K/uL (0-1) Nucleated Red Blood Cells 0.0 % (0.0-0.19) Sodium Level 142 mmol/L (136-145) Potassium Level 4.2 mmol/L (3.5-5.1) Chloride Level 106 mmol/L (101-111) Carbon Dioxide Level 32 mmol/L (21-32) Blood Urea Nitrogen 20 mg/dL (7-18) H Creatinine 0.8 mg/dL (0.5-1.3) Glomerular Filtration Rate Calc 86 mL/min (>90) Random Glucose 111 mg/dL (70-105) H Total Calcium 8.9 mg/dL (8.5-10.1) Magnesium Level 1.80 mg/dL (1.80-2.40) Total Creatine Kinase 85 U/L (21-232) Troponin I High Sensitivity 9 ng/L (4-75) Urine Color LIGHT-YELLOW (YELLOW) Urine Appearance CLEAR (CLEAR) Urine pH 6.0 (5.0-8.0) Urine Specific [place] 1.019 (1.001-1.031) Urine Protein NEGATIVE mg/dL (NEGATIVE) Urine Glucose (UA) NEGATIVE mg/dL (NEGATIVE) Urine Ketones NEGATIVE mg/dL (NEGATIVE) Urine Occult Blood NEGATIVE (NEGATIVE) Urine Nitrate NEGATIVE (NEGATIVE) Urine Bilirubin NEGATIVE mg/dL (NEGATIVE) Urine Urobilinogen 0.2 mg/dL (0.2-1.0) Urine Leukocyte Esterase NEGATIVE Elizabeth/uL Urine RBC 2-5 /HPF (0-1) H Urine WBC None /HPF (0-1) Urine Squamous Epithelial Cells RARE /HPF (0-2) Urine Bacteria None /HPF (None Seen) REASON: dizzy 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 TECHNIQUE: Thin collimated axial CT images of the brain were obtained, with sagittal and coronal reformatted images also submitted. A CT scan is done according to ALARA (As Low as Reasonably Achievable). CONTRAST USED: None. COMPARISON: None provided. FINDINGS: Mild age-related degenerative change with prominent sulci and basilar cisterns. Subtle hypoattenuation in the deep periventricular white matter and the echols radiata sequela of chronic microvascular ischemic disease. No acute cortical infarction, hemorrhage, mass, or mass effect. No hydrocephalus or abnormal extra-axial fluid collections. The posterior fossa is unremarkable. The skull base and calvarium are intact. The included portions of the paranasal sinuses and mastoid air cells are clear. IMPRESSION: No acute intracranial abnormality is present. Chronic ischemic and atrophic changes. 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 CLINICAL HISTORY: dizzy COMPARISON: Radiograph dated October 07, 2024 FINDINGS: LUNGS: There is subtle airspace disease at the lung bases that may reflect an infectious/inflammatory process. PLEURAL SPACES: No pleural effusion or pneumothorax. MEDIASTINUM: Unchanged elevation of the right hemidiaphragm. The cardiomediastinal silhouette is within normal limits. BONES: No acute osseous abnormality. IMPRESSION: 1. Subtle bibasilar airspace disease, possibly representing infection or inflammation. /[place] Labs Reviewed?: Yes EKG: (+) rhythm (Sinus rhythm) EKG Comment: Date:03/09/2025 Time:2054 Ventricular rate:82 CO interval:188 QRS duration:90 QT/QTc:361 EKG interpretation: Sinus rhythm Reviewed by ED Attending no STEMI ED Course ED Course Orders Procedure Category Date Status Time Cbc With Differential LAB 03/09/25 Complete 21:04 Chest 1vw RAD 03/09/25 Resulted 21:04 12 Lead Ekg Tracing- EKG 03/09/25 Logged Technical 21:04 0.9%Nacl 1000ml (Ns PHA 03/09/25 In Process 1000ml) 21:30 Magnesium LAB 03/09/25 Complete 21:04 Creatine Kinase, Total LAB 03/09/25 Complete 21:04 Troponin I High LAB 03/09/25 Complete Sensitivity 21:04 Urinalysis Profile LAB 03/09/25 Complete 21:04 Basic Metabolic Panel LAB 03/09/25 Complete 21:04 Orthostatic Vital CPOE 03/09/25 Transmitted Signs 21:04 Meclizine Hcl 25 Mg PHA 03/09/25 Complete (Antivert 25 Mg) 21:30 Ct Head/Brain W/O CT 03/09/25 Resulted Contrast 21:04 Current Medications Medications (Trade) Dose Ordered Sig/Aftab Route PRN Reason Start Time Stop Time Status Last Admin Dose Admin Meclizine HCl (ANTIvert 25 mg) 25 mg ONCE ONCE PO 03/09/25 21:30 03/09/25 21:31 DC 03/09/25 21:29 Sodium Chloride 1,000 ml @ 125 mls/hr ONCE ONCE IV 03/09/25 21:30 03/10/25 05:29 03/09/25 21:27 Vital Signs Date Time Temp Pulse Resp B/P (MAP) Pulse Ox O2 Delivery O2 Flow Rate FiO2 03/09/25 22:04 81 18 135/59 Room Air* 0 03/09/25 22:02 84 18 132/69 Room Air* 0 03/09/25 22:00 78 18 152/66 Room Air* 0 03/09/25 20:49 98.6 85 20 158/66 96 Room Air Medical Decision Making MDM The Patient is an 89-year-old male with a history of hypertension, Parkinson's who presents to the emergency department with complaints of dizziness and fluctuation in blood pressure. Patient reports he has been having these pro blems for over two months and has been follow up with the his primary doctor and working on the blood pressure medications. Patient denies any nausea or vomiting, denies any falls, denies any use of blood thinners or bloody stools. CBC showed no leukocytosis, mild normocytic anemia, chemistry showed creatinine of 0.8, negative troponin, urinalysis unremarkable, CT head showed no acute pathology. Chest x-ray similar to previous visits. Patient with no cough, fevers or leukocytosis. On physical exam patient is in no acute distress, neurologically intact other than the chronic tremors due to Parkinson's. Vital signs remained stable during ER stay. Patient has been seen here multiple times this year for similar reasons. Reports he has been following up with the his primary doctor. Labs and imaging discussed with the patient who agreed to follow up with PCP and neurologist. Differential diagnosis: Vertigo, dehydration, electrolyte imbalance, intracerebral hemorrhage Need for hospitalization: Patient does not meet criteria for hospitalization. There are no social concerns with this patient. DX & DISP Disposition: Discharge Departure Impression: Primary Impression: Dizziness Additional Impression: Parkinsons disease Condition: Stable Additional Instructions: Your labs and your imaging were unremarkable. Your vitals remained stable while you were in the ER. Please continue to follow up with your PCP and neurologist. If anything worsens please return to ER. FOLLOW-UP WITH PRIMARY CARE PROVIDER IN 1 TO 2 DAYS. TAKE MEDICATIONS DIRECTED HERE IN THE EMERGENCY ROOM. OKAY TO CONTINUE HOME MEDICATIONS UNLESS OTHERWISE DISCUSSED DURING YOUR VISIT IN THE EMERGENCY ROOM TODAY. RETURN TO YOUR NEAREST EMERGENCY ROOM IF SYMPTOMS WORSEN OR IF THERE IS NO IMPROVEMENT. CALL 911 IF YOU NEED IMMEDIATE ASSISTANCE. TAKE TYLENOL [id number] NEEDED AND IF NO CONTRAINDICATIONS ARE PRESENT. INCREASE ORAL HYDRATION. A WOUND CULTURE OR URINE CULTURE WAS ORDERED HERE IN THE EMERGENCY ROOM DEPARTMENT PLEASE FOLLOW-UP WITH PRIMARY CARE PROVIDER AND ADVISE THEM TO GET REPEAT PORTS FROM OUR FACILITY. IF YOU HAD ANY JAQUELINE WRAP/SPLINTS THAT WERE APPLIED HERE, PLEASE DO NOT REMOVE THEM UNTIL YOU SEE YOUR PRIMARY CARE OR SPECIALTY. Referrals: SELF,REFERRAL (PCP) Time of Disposition: 22:35 I have reviewed the case, and I agree with, Diagnosis and Plan LAURE MEADOWS [facility] Mar 09, 2025 22:03
[2025-03-09 23:10] VITALS: BP 139/67; PULSE 72; RESP 18; TEMP 98.3; O2SAT 97
--- NOTE | 2025-03-10 06:31 | EKG ---
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
== END 2025-03-09 23:22 | disposition home or self-care (01) ==
LOC: EDH 20:48
DX: R42 Dizziness and giddiness (principal); G20.A1 Parkinson's disease without dyskinesia, without mention of fluctuations; I10 Essential (primary) hypertension; Z79.52 Long term (current) use of systemic steroids; Z79.899 Other long term (current) drug therapy; Z98.890 Other specified postprocedural states
CPT/HCPCS: 99285; 96360; 70450; 71045; 96361; 82550; 83735; 84484; 80048; 85025; 81001; 36415; 93005; J7030